=== PATIENT | female | born 1975 | race Caucasian/White ===

== ENCOUNTER 2018-03-25 21:06 | Emergency (ER) | payer MEDICARE, OTHER ==
[2018-03-25] MEDS ORDERED: SODIUM CHLORIDE 0.9% 1,000 ML with MVI, ADULT NO.4 WITH VIT K 10 ML, THIAMINE 100 MG, F... IV ONE ×4 (22:50)
--- NOTE | 2018-03-25 23:14 | ED ---
Alcohol HPI - General Chief Complaint: Alcohol Stated Complaint: alcohol detox Time Seen by Provider: 03/25/18 21:30 Source: patient Mode of arrival: ambulatory Limitations: no limitations - History of Present Illness Initial Comments: Patient is a 42-year-old female with a past medical history of alcohol abuse who presents the emergency department today for evaluation of alcohol intoxication and desire to sober up. She reports she has a long history of alcoholism. She reports that she was sober for approximately one year but 2 months ago began drinking again. He reports that she drinks daily. She drinks liquor. She reports that approximately 2 and half weeks ago she was evaluated in a hospital in [facility] and was prescribed Librium for detox. She reports that she was sober for about a week but for the past week has been drinking daily. She reports that she has moved to [place] to be with a new boyfriend. She states that this evening she had been drinking when she decided that she wanted to become sober again. Her boyfriend brought her to the emergency department and dropped her off prior to going to work. Patient states that she does not have her phone. Does not know where her new boyfriend's home is. Does not have an address. And has no way to leave the emergency department. She states that she came here to help get sober. She states that when she tried to use over 2 weeks ago she was given Librium which helped however wasn't given until she had an alcohol level of 0 and she reports that she had significant agitation upon sobering up. Denies any history of seizing with withdraw in the past. - Related Data Home Medications Medication Instructions Recorded Confirmed Armodafinil [Nuvigil] 250 mg PO DAILY 03/25/18 03/25/18 Gabapentin 800 mg PO TID 03/25/18 03/25/18 Omeprazole [PriLOSEC] 40 mg PO DAILY 03/25/18 03/25/18 Venlafaxine HCl [Effexor XR] 300 mg PO DAILY 03/25/18 03/25/18 buPROPion HCL [Wellbutrin XL] 300 mg PO DAILY 03/25/18 03/25/18 hydrOXYzine PAMOATE [Vistaril] 50 - 100 mg PO TID PRN 03/25/18 03/25/18 traZODone HCL 150 mg PO HS 03/25/18 03/25/18 Previous Rx's Medication Instructions Recorded chlordiazePOXIDE HCl [Librium] 50 mg PO QID #34 capsule 03/26/18 Allergies Allergy/AdvReac Type Severity Reaction Status Date / Time amoxicillin Allergy Rash/Hives Verified 03/25/18 21:14 azithromycin [From Zithromax] Allergy Nausea & Verified 03/25/18 21:14 Vomiting & Diarrhea Review of Systems ROS Statement: Those systems with pertinent positive or pertinent negative responses have been documented in the HPI. ROS Other: All systems not noted in ROS Statement are negative. Past Medical History Past Medical History: GERD/Reflux Additional Past Medical History / Comment(s): alcoholism History of Any Multi-Drug Resistant Organisms: MRSA MDRO Source:: face Past Surgical History: Orthopedic Surgery Past Psychological History: Depression Smoking Status: Former smoker Past Alcohol Use History: Abuse, Daily, Heavy Past Drug Use History: Cocaine General Exam - General Exam Comments Initial Comments: GENERAL: Patient appears intoxicated HENT: Normocephalic, Atraumatic. Neck is soft and supple. No significant lymphadenopathy is noted. Oropharynx is clear. Moist mucous membranes. Neck has full range of motion without eliciting any pain. EYES: The sclera were anicteric and conjunctiva were pink and moist. Extraocular movements were intact and pupils were equal round and reactive to light. Eyelids were unremarkable. PULMONARY: Unlabored respirations. Good breath sounds bilaterally. No audible rales rhonchi or wheezing was noted. CARDIOVASCULAR: Tachycardic regular ABDOMEN: Soft and nontender with normal bowel sounds. SKIN: Skin is clear with no lesions or rashes and otherwise unremarkable. NEUROLOGIC: Patient is alert and oriented x3. Cranial nerves II through XII are grossly intact. Motor and sensory are also intact. Symmetrical smile. Speech is somewhat slurred MUSCULOSKELETAL: Normal extremities with adequate strength and full range of motion. No lower extremity swelling or edema. No calf tenderness. LYMPHATICS: No significant lymphadenopathy is noted PSYCHIATRIC: Tearful, apologetic, asking for help Limitations: no limitations Limitations: no limitations Course Vital Signs 03/25/18 03/26/18 03/26/18 21:10 02:43 05:11 Temperature 98 F 98.3 F Pulse Rate 111 H 109 H 96 Respiratory 18 18 20 Rate Blood Pressure 134/85 146/92 129/95 O2 Sat by Pulse 98 100 97 Oximetry 03/26/18 03/26/18 03/26/18 06:01 06:20 07:01 Temperature 97.9 F Pulse Rate 88 94 80 Respiratory 18 16 18 Rate Blood Pressure 133/80 O2 Sat by Pulse 96 97 98 Oximetry Medical Decision Making - Medical Decision Making The patient was seen and evaluated, history was obtained from the patient.-year- old alcoholic female who reports intermittent sobriety over the past year. Most recently was sober approximately 2 weeks ago but has been drinking a fifth of liquor daily for at least the past week to 10 days. Was dropped off at the hospital by who she reports is her boyfriend. She is clearly intoxicated and has no way to contact anybody, does not know where she lives. At this time we will pursue an evaluation. Labs are consistent with alcoholic hepatitis as well as some macrocytic anemia which is likely secondary to alcohol abuse Patient resting comfortably. A banana bag of IV fluids and a regular diet were ordered. We will monitor this patient throughout the evening. We'll reevaluate when the patient is clinically sober. Patient rested comfortably throughout the night during her emergency department stay. Patient was somewhat anxious in the morning. By mouth Ativan was ordered. Her first dose of by mouth Librium was also given. Patient's ride arrived at 6:30 in the morning as comfortable taking patient home at this time. - Lab Data Result diagrams: 03/25/18 23:00 03/25/18 23:00 Lab Results 03/25/18 03/25/18 Range/Units 23:00 23:00 WBC 7.8 (3.8-10.6) k/uL RBC 3.81 (3.80-5.40) m/uL Hgb 13.1 (11.4-16.0) gm/dL Hct 39.3 (34.0-46.0) % MCV 103.2 H (80.0-100.0) fL MCH 34.4 (25.0-35.0) pg MCHC 33.3 (31.0-37.0) g/dL RDW 14.9 (11.5-15.5) % Plt Count 274 (150-450) k/uL Neutrophils % 69 % Lymphocytes % 23 % Monocytes % 4 % Eosinophils % 1 % Basophils % 1 % Neutrophils # 5.4 (1.3-7.7) k/uL Lymphocytes # 1.8 (1.0-4.8) k/uL Monocytes # 0.3 (0-1.0) k/uL Eosinophils # 0.1 (0-0.7) k/uL Basophils # 0.1 (0-0.2) k/uL Macrocytosis Slight Sodium 145 (137-145) mmol/L Potassium 4.0 (3.5-5.1) mmol/L Chloride 102 (98-107) mmol/L Carbon Dioxide 27 (22-30) mmol/L Anion Gap 16 mmol/L BUN 8 (7-17) mg/dL Creatinine 0.91 (0.52-1.04) mg/dL Est GFR (CKD-EPI)AfAm 90 (>60 ml/min/1.73 sqM) Est GFR (CKD-EPI)NonAf 78 (>60 ml/min/1.73 sqM) Glucose 84 (74-99) mg/dL Calcium 9.5 (8.4-10.2) mg/dL Total Bilirubin 0.6 (0.2-1.3) mg/dL AST 331 H (14-36) U/L ALT 123 H (9-52) U/L Alkaline Phosphatase 122 (38-126) U/L Total Protein 8.2 (6.3-8.2) g/dL Albumin 4.9 (3.5-5.0) g/dL Serum Alcohol 253 H* mg/dL Disposition Clinical Impression: Alcoholic intoxication Disposition: HOME SELF-CARE Instructions: Alcohol Withdrawal (ED) Prescriptions: chlordiazePOXIDE HCl [Librium] 50 mg PO QID #34 capsule Is patient prescribed a controlled substance at d/c from ED?: Yes When asked, does pt state using other controlled substances?: No If prescribed controlled substance>3 days was MAPS reviewed?: No Referrals: None,Stated [Primary Care Provider] - 1-2 days Time of Disposition: 06:33
[2018-03-25 23:43] LABS: Basophils # (A) 0.1 k/uL (0-0.2); Basophils % (A) 1 %; Eosinophils # (A) 0.1 k/uL (0-0.7); Eosinophils % (A) 1 %; HCT 39.3 % (34.0-46.0); HGB 13.1 gm/dL (11.4-16.0); Lymphocytes # (A) 1.8 k/uL (1.0-4.8); Lymphocytes % (A) 23 %; MCH 34.4 pg (25.0-35.0); MCHC 33.3 g/dL (31.0-37.0); MCV 103.2 fL (80.0-100.0); Macrocytosis Slight; Mean Platelet Volume 7.1; Monocytes # (A) 0.3 k/uL (0-1.0); Monocytes % (A) 4 %; Neutrophils # (A) 5.4 k/uL (1.3-7.7); Neutrophils % (A) 69 %; Platelet Count 274 k/uL (150-450); RBC 3.81 m/uL (3.80-5.40); RDW 14.9 % (11.5-15.5); WBC 7.8 k/uL (3.8-10.6)
[2018-03-25 23:52] LABS: Albumin 4.9 g/dL (3.5-5.0); Calcium 9.5 mg/dL (8.4-10.2); Total Bilirubin 0.6 mg/dL (0.2-1.3); Total Protein 8.2 g/dL (6.3-8.2)
[2018-03-26] MEDS ORDERED: chlordiazePOXIDE 25 MG CAP PO STA (04:40)
[2018-03-26] MEDS ORDERED: LORazepam 1 MG TAB PO STA (05:44)
[2018-03-26 07:03] VITALS: BP 133/80; PULSE 80; RESP 18; TEMP 97.9
== END 2018-03-26 07:03 | disposition home or self-care (01) ==
LOC: EC 21:06
DX: F10.120 Alcohol abuse with intoxication, uncomplicated (principal); F32.9 Major depressive disorder, single episode, unspecified; K21.9 Gastro-esophageal reflux disease without esophagitis; Z86.14 Personal history of Methicillin resistant Staphylococcus aureus infection; Z87.891 Personal history of nicotine dependence; Y90.8 Blood alcohol level of 240 mg/100 ml or more; Z79.899 Other long term (current) drug therapy; Z88.0 Allergy status to penicillin; Z88.1 Allergy status to other antibiotic agents
CPT/HCPCS: 36415; 80053; 85025; 99284; 96365; 96366 ×7; G0480; J3411; 80320; 82075

== ENCOUNTER 2018-03-30 17:19 | Emergency (ER) | payer MEDICARE, OTHER ==
[2018-03-30 17:44] VITALS: RESP 18
[2018-03-30 18:09] LABS: Appearance,Urine Cloudy (Clear); Bacteria,Urine Occasional /hpf; Bilirubin,Urine Negative (Negative); Blood,Urine Trace (Negative); Color,Urine Yellow; Glucose,Urine (UA) Negative (Negative); Ketones,Urine Negative (Negative); Leukocyte Esterase,Urine Large (Negative); Mucus,Urine Occasional /hpf; Nitrite,Urine Positive (Negative); Protein,Urine Trace (Negative); RBC,Urine 9 /hpf (0-5); Specific Gravity,Urine 1.024 (1.001-1.035); Squamous Epithelial Cell,Urine 22 /hpf (0-4); Urobilinogen,Urine <2.0 mg/dL (<2.0); WBC,Urine >182 /hpf (0-5)
--- NOTE | 2018-03-30 19:03 | ED ---
Female Urogenital HPI - General Chief complaint: Urogenital Stated complaint: female /med refill Time Seen by Provider: 03/30/18 18:32 Source: patient Mode of arrival: ambulatory Limitations: no limitations - History of Present Illness Initial comments: 42-year-old female patient presents to the emergency department today with complaints of dysuria and urinary urgency. Patient states that she has had symptoms for approximately one week and they've seemed to get worse. Patient states she did have an incontinent episode while sleeping the other night. Patient denies any fevers or chills. Patient states that she's also had thick vaginal discharge with a "fishy" odor. Patient states that she is currently withdrawing from alcohol and lasted was approximately 5 days ago. States she is taking Librium. Patient has had difficulties similar to this when withdrawing in the past. She denies any nausea, vomiting, abdominal pain, back pain, or flank pain. She denies any hematuria. States that she has had urinary tract infections in the past and this feels quite similar. She denies any concerns for sexually transmitted infections. Patient denies any recent rash, shortness breath, chest pain, diarrhea, constipation, back pain, numbness , tingling, dizziness, weakness, headache, visual changes, or any other complaints. - Related Data Home Medications Medication Instructions Recorded Confirmed Armodafinil [Nuvigil] 250 mg PO DAILY 03/25/18 03/30/18 Gabapentin 800 mg PO TID 03/25/18 03/30/18 Omeprazole [PriLOSEC] 40 mg PO DAILY 03/25/18 03/30/18 Venlafaxine HCl [Effexor XR] 300 mg PO DAILY 03/25/18 03/30/18 traZODone HCL 150 mg PO HS 03/25/18 03/30/18 Levonorgestrel-Ethin Estradiol 1 tab PO DAILY 03/30/18 03/30/18 [Levora-28 Tablet] Naproxen 500 mg PO BID 03/30/18 03/30/18 buPROPion XL [Wellbutrin Xl] 450 mg PO DAILY 03/30/18 03/30/18 Previous Rx's Medication Instructions Recorded Gabapentin [Neurontin] 800 mg PO TID #21 tablet 03/30/18 Sulfamethoxazole/Trimethoprim 1 each PO BID #20 tablet 03/30/18 [Bactrim DS 800-160 mg] buPROPion XL [Wellbutrin XL] 300 mg PO DAILY #14 tab.er.24h 03/30/18 Allergies Allergy/AdvReac Type Severity Reaction Status Date / Time amoxicillin Allergy Rash/Hives Verified 03/30/18 18:38 azithromycin [From Zithromax] Allergy Nausea & Verified 03/30/18 18:38 Vomiting & Diarrhea Review of Systems ROS Statement: Those systems with pertinent positive or pertinent negative responses have been documented in the HPI. ROS Other: All systems not noted in ROS Statement are negative. Past Medical History Past Medical History: GERD/Reflux Additional Past Medical History / Comment(s): alcoholism History of Any Multi-Drug Resistant Organisms: MRSA MDRO Source:: face Past Surgical History: Orthopedic Surgery Past Psychological History: Depression Smoking Status: Former smoker Past Alcohol Use History: None Reported, Abuse, Daily, Heavy Past Drug Use History: Cocaine General Exam Limitations: no limitations General appearance: alert, in no apparent distress, other (This is a well- developed, well-nourished adult female patient in no acute distress. Vital signs upon presentation are temperature 97.9F, pulse 100, respirations 18, blood pressure 124/83, pulse ox 100% on room air.) Eye exam: Present: normal appearance, PERRL, EOMI. Absent: scleral icterus, conjunctival injection, periorbital swelling ENT exam: Present: normal exam, normal oropharynx, mucous membranes moist Respiratory exam: Present: normal lung sounds bilaterally. Absent: respiratory distress, wheezes, rales, rhonchi, stridor Cardiovascular Exam: Present: regular rate, normal rhythm, normal heart sounds. Absent: systolic murmur, diastolic murmur, rubs, gallop, clicks GI/Abdominal exam: Present: soft, tenderness (Mild suprapubic tenderness), normal bowel sounds. Absent: distended, guarding, rebound, rigid External exam: Present: normal external exam Speculum exam: Present: normal speculum exam By manual exam: Present: normal by manual exam Neurological exam: Present: alert, oriented X3, CN II-XII intact, other ( Generalized tremor) Psychiatric exam: Present: normal affect, normal mood Skin exam: Present: warm, dry, intact, normal color. Absent: rash Course Vital Signs 03/30/18 03/30/18 17:41 19:52 Temperature 97.9 F 97.7 F Pulse Rate 100 96 Respiratory 18 18 Rate Blood Pressure 124/83 138/80 O2 Sat by Pulse 100 100 Oximetry Medical Decision Making - Medical Decision Making 42-year-old female patient presents to emergency department today for evaluation of dysuria and urinary urgency. Patient is also concerned that she may have a vaginal bacterial infection because she has been having intermittent thick discharge and fishy odor. Patient is also requesting refills on her psychiatric medications as she recently moved to the area and fired her old psychiatrist. Physical examination did reveal some mild suprapubic tenderness. Patient had no CVA tenderness. Vital signs are stable no fever. Urinalysis was obtained and showed a cloudy appearance with trace protein, trace blood, positive nitrite, large leukocyte esterase, 9 red blood cells, greater than 182 white blood cells, 22 squamous epithelial cells, occasional bacteria, and occasional mucous. Pelvic examination was unremarkable. Cultures were obtained and sent. Patient will be treated for urinary tract infection. We will refill her gabapentin and Wellbutrin prescriptions for the next week, I did inform her we were unable to fill the Nuvigil as it is a controlled substance. She was given referral for primary care follow-up as well as psychiatry follow-up. Return parameters were discussed in detail. She verbalizes understanding and agreed with this plan. - Lab Data Lab Results 03/30/18 Range/Units 17:47 Urine Color Yellow Urine Appearance Cloudy H (Clear) Urine pH 6.0 (5.0-8.0) Ur Specific [place] 1.024 (1.001-1.035) Urine Protein Trace H (Negative) Urine Glucose (UA) Negative (Negative) Urine Ketones Negative (Negative) Urine Blood Trace H (Negative) Urine Nitrite Positive H (Negative) Urine Bilirubin Negative (Negative) Urine Urobilinogen <2.0 (<2.0) mg/dL Ur Leukocyte Esterase Large H (Negative) Urine RBC 9 H (0-5) /hpf Urine WBC >182 H (0-5) /hpf Ur Squamous Epith Cells 22 H (0-4) /hpf Urine Bacteria Occasional H (None) /hpf Urine Mucus Occasional H (None) /hpf Disposition Clinical Impression: Urinary tract infection, Medication refill Disposition: HOME SELF-CARE Condition: Good Instructions: Urinary Tract Infection in Women (ED), Medicine Refill (ED) Additional Instructions: Increase fluids. Continue taking all medications as prescribed. Complete antibiotic prescription in full. Follow-up with the primary care physician for recheck in 1-2 days. Establish with a psychiatrist/primary care physician for refills of your medications. Return here immediately for any new, worsening, or concerning symptoms. Prescriptions: buPROPion XL [Wellbutrin XL] 300 mg PO DAILY #14 tab.er.24h Gabapentin [Neurontin] 800 mg PO TID #21 tablet Sulfamethoxazole/Trimethoprim [Bactrim DS 800-160 mg] 1 each PO BID #20 tablet Is patient prescribed a controlled substance at d/c from ED?: No Referrals: Henrietta Salomon MD [STAFF PHYSICIAN] - 1-2 days Rigoberto Paniagua DO [Doctor of Osteopathic Medicine] - 1-2 days Time of Disposition: 19:40
[2018-03-30 19:54] VITALS: BP 138/80; PULSE 96; TEMP 97.7
[2018-03-31 15:06] LABS: C. trachomatis,PCR Negative (Neg,Equiv); Chlamydia trachomatis Source Vagina; N. gonorrhoeae,PCR Negative (Neg,Equiv); Neisseria Source Vagina
== END 2018-03-30 19:53 | disposition home or self-care (01) ==
LOC: EC 17:19
DX: N39.0 Urinary tract infection, site not specified (principal); Z76.0 Encounter for issue of repeat prescription; K21.9 Gastro-esophageal reflux disease without esophagitis; F32.9 Major depressive disorder, single episode, unspecified; Z86.14 Personal history of Methicillin resistant Staphylococcus aureus infection; Z87.891 Personal history of nicotine dependence; Z79.1 Long term (current) use of non-steroidal anti-inflammatories (NSAID); Z79.3 Long term (current) use of hormonal contraceptives; Z79.899 Other long term (current) drug therapy; Z88.0 Allergy status to penicillin; Z88.1 Allergy status to other antibiotic agents
CPT/HCPCS: 81001; 87070; 87086; 87205; 87491; 87591; 87808; 99283

== ENCOUNTER 2018-04-05 23:30 | Emergency (ER) | payer MEDICARE, OTHER ==
[2018-04-05 23:35] VITALS: BP 135/86; PULSE 97; RESP 16; TEMP 98.3
[2018-04-05] MEDS ORDERED: VENLAFAXINE HCL ER 150 MG CAP PO STA (23:44)
--- NOTE | 2018-04-05 23:54 | ED ---
General Adult HPI - General Source: patient, RN notes reviewed Mode of arrival: ambulatory Limitations: no limitations <Tania Limon - Last Filed: 04/05/18 23:44> <Mary Maynard - Last Filed: 04/06/18 00:33> - General Chief complaint: Nausea/Vomiting/Diarrhea Stated complaint: migraine Time Seen by Provider: 04/05/18 23:36 - History of Present Illness Initial comments: This is a 42-year-old female who presents to the emergency department with request for medication refill. Patient states that she has been on Effexor for 15 years. She states that she takes 300 mg of Effexor daily. She states that she ran out of her medications 3 days ago. Since that time, patient states she has developed nausea, vomiting and migraine headache. Patient requests to have a prescription for Effexor. She states that she does have a follow-up appointment with her primary care provider tomorrow. Patient states that she does not want any medications for her migraine or nausea, just wants Effexor. Denies any fevers or chills, chest pain or shortness of breath, abdominal pain, dizziness or vision changes. (Tania Limon) - Related Data Home Medications Medication Instructions Recorded Confirmed Armodafinil [Nuvigil] 250 mg PO DAILY 03/25/18 03/30/18 Gabapentin 800 mg PO TID 03/25/18 03/30/18 Omeprazole [PriLOSEC] 40 mg PO DAILY 03/25/18 03/30/18 traZODone HCL 150 mg PO HS 03/25/18 03/30/18 Levonorgestrel-Ethin Estradiol 1 tab PO DAILY 03/30/18 03/30/18 [Levora-28 Tablet] Naproxen 500 mg PO BID 03/30/18 03/30/18 buPROPion XL [Wellbutrin Xl] 450 mg PO DAILY 03/30/18 03/30/18 Previous Rx's Medication Instructions Recorded Gabapentin [Neurontin] 800 mg PO TID #21 tablet 03/30/18 Sulfamethoxazole/Trimethoprim 1 each PO BID #20 tablet 03/30/18 [Bactrim DS 800-160 mg] buPROPion XL [Wellbutrin XL] 300 mg PO DAILY #14 tab.er.24h 03/30/18 Venlafaxine HCl [Effexor XR] 300 mg PO DAILY #14 cap.er.24h 04/05/18 Allergies Allergy/AdvReac Type Severity Reaction Status Date / Time amoxicillin Allergy Rash/Hives Verified 04/05/18 23:35 azithromycin [From Zithromax] Allergy Nausea & Verified 04/05/18 23:35 Vomiting & Diarrhea Review of Systems ROS Other: All systems not noted in ROS Statement are negative. <Tania Limon - Last Filed: 04/05/18 23:44> ROS Other: All systems not noted in ROS Statement are negative. <Mary Maynard - Last Filed: 04/06/18 00:33> ROS Statement: Those systems with pertinent positive or pertinent negative responses have been documented in the HPI. Past Medical History Past Medical History: GERD/Reflux Additional Past Medical History / Comment(s): alcoholism. History of Any Multi-Drug Resistant Organisms: MRSA MDRO Source:: face Past Surgical History: Orthopedic Surgery Past Psychological History: Depression Smoking Status: Former smoker Past Alcohol Use History: None Reported, Abuse, Daily, Heavy Past Drug Use History: Cocaine <Tania Limon M - Last Filed: 04/05/18 23:44> General Exam Limitations: no limitations <Tania Limon M - Last Filed: 04/05/18 23:44> <Mary Maynard - Last Filed: 04/06/18 00:33> - General Exam Comments Initial Comments: General: Awake and alert, well-developed; in no apparent distress. Patient lying on ED stretcher with an ice pack on her forehead. Partner is at bedside. HEENT: Head atraumatic, normocephalic. Pupils are equal, round and reactive to light. Extraocular movements intact. Oropharynx moist. Neck: Supple. Normal ROM. Cardiovascular: Regular rate and rhythm. No murmurs, rubs or gallops. Chest symmetrical. Respiratory: Lungs clear to auscultation bilaterally. No wheezes, rales or rhonchi. Normal respiratory effort with no use of accessory muscles. Musculoskeletal: Normal ROM, no tenderness bilateral upper and lower extremities. Ambulating normally. Skin: [place]ice, warm and dry without rashes or lesions. Neurological: Alert and oriented x3. CN II-XII grossly intact. Speech is fluent and answers are appropriate. No focal neuro deficits. Psychiatric: Normal mood and affect. No overt signs of depression or anxiety noted. (Tania Limon) Vital Signs 04/05/18 23:32 Temperature 98.3 F Pulse Rate 97 Respiratory 16 Rate Blood Pressure 135/86 O2 Sat by Pulse 94 L Oximetry Medical Decision Making <Tania Limon - Last Filed: 04/05/18 23:44> <Mary Maynard - Last Filed: 04/06/18 00:33> - Medical Decision Making This is a 42-year-old female who presents to emergency department with request for medication refill. Patient states she has been out of her Effexor for the past 3 days. She reports vomiting and migraine. I asked patient if she wanted to be treated for the migraine and vomiting and she declines. She states she just wants her Effexor refilled. She has an appointment tomorrow with her primary care provider. Patient given 300 mg of Effexor here in the emergency department. She will be provided with a few days' worth until she is able to get a refill. Vitals are stable and patient is in no acute distress. She will be discharged home at this time. She is in agreement and voices understanding. All questions were answered. (Tania Limon) I was available for consultation in the emergency department. The history and physical exam were done by the midlevel provider. I was consulted for this patient's care. I reviewed the case with the midlevel provider and based on their presentation of the patient, I agree with the assessment, medical decision making and plan of care as documented. (Mary Maynard) Disposition Is patient prescribed a controlled substance at d/c from ED?: No Time of Disposition: 23:54 <Tania Limon - Last Filed: 04/05/18 23:44> <Mary Maynard - Last Filed: 04/06/18 00:33> Clinical Impression: Medication refill Disposition: HOME SELF-CARE Condition: Good Instructions: Venlafaxine (By mouth) Additional Instructions: As discussed, please follow-up with your primary care provider for refill. Please take medications as prescribed. Please follow up with primary care provider within 1-2 days. Return to emergency department if symptoms should worsen or any concerns arise. Prescriptions: Venlafaxine HCl [Effexor XR] 300 mg PO DAILY #14 cap.er.24h Referrals: None,Stated [Primary Care Provider] - 1-2 days
== END 2018-04-06 00:16 | disposition home or self-care (01) ==
LOC: EC 23:30
DX: Z76.0 Encounter for issue of repeat prescription (principal); G43.909 Migraine, unspecified, not intractable, without status migrainosus; F32.9 Major depressive disorder, single episode, unspecified; K21.9 Gastro-esophageal reflux disease without esophagitis; Z86.14 Personal history of Methicillin resistant Staphylococcus aureus infection; Z87.891 Personal history of nicotine dependence; Z79.3 Long term (current) use of hormonal contraceptives; Z79.1 Long term (current) use of non-steroidal anti-inflammatories (NSAID); Z79.899 Other long term (current) drug therapy; Z88.0 Allergy status to penicillin; Z88.1 Allergy status to other antibiotic agents; Z53.29 Procedure and treatment not carried out because of patient's decision for other reasons
CPT/HCPCS: 99283

== ENCOUNTER 2018-04-07 15:15 | Emergency (ER) | payer MEDICARE, OTHER ==
[2018-04-07] MEDS ORDERED: NITROGLYCERIN OINT 1 INCH/GM PACKET TOPICAL STA (15:19)
[2018-04-07] MEDS ORDERED: ASPIRIN 81 MG PO STA (15:19)
[2018-04-07 15:25] VITALS: BP 145/108; PULSE 96; RESP 20; TEMP 97.8
[2018-04-07] MEDS ORDERED: FAMOTIDINE 20 MG/2 ML VIAL IV STA (15:31)
[2018-04-07] MEDS ORDERED: METOCLOPRAMIDE 5 MG/ML 2 ML VIAL IM STA (15:31)
[2018-04-07] MEDS ORDERED: SODIUM CHLORIDE 0.9% 500 ML IV STA (15:32)
--- NOTE | 2018-04-07 15:38 | ED ---
General Adult HPI - General Chief complaint: Alcohol Stated complaint: alcohol Time Seen by Provider: 04/07/18 15:18 Source: patient, EMS, RN notes reviewed Mode of arrival: EMS Limitations: no limitations - History of Present Illness Initial comments: Patient is a pleasant 42-year-old female presenting to the emergency Department with alcohol intoxication. Patient states she is unclear why she is here. Patient admits to drinking about a fifth of alcohol daily. Patient does complain of some discomfort and points to the epigastrium. Patient states she was in the hospital for detox several weeks ago. Patient states she was also recently here for urinary tract infection. Patient denies any history of pancreatitis - Related Data Home Medications Medication Instructions Recorded Confirmed Armodafinil [Nuvigil] 250 mg PO BID 03/25/18 04/07/18 Omeprazole [PriLOSEC] 40 mg PO BID 03/25/18 04/07/18 traZODone HCL 150 mg PO HS 03/25/18 04/07/18 Levonorgestrel-Ethin Estradiol 1 tab PO DAILY 03/30/18 04/07/18 [Levora-28 Tablet] Naproxen 500 mg PO BID PRN 03/30/18 04/07/18 Sulfamethoxazole/Trimethoprim 1 tab PO BID 04/07/18 04/07/18 [Bactrim DS 800-160 mg] Previous Rx's Medication Instructions Recorded buPROPion XL [Wellbutrin XL] 300 mg PO DAILY #14 tab.er.24h 03/30/18 Venlafaxine HCl [Effexor XR] 300 mg PO DAILY #14 cap.er.24h 04/05/18 Allergies Allergy/AdvReac Type Severity Reaction Status Date / Time amoxicillin Allergy Rash/Hives Verified 04/07/18 15:45 azithromycin [From Zithromax] Allergy Nausea & Verified 04/07/18 15:45 Vomiting & Diarrhea Review of Systems ROS Statement: Those systems with pertinent positive or pertinent negative responses have been documented in the HPI. ROS Other: All systems not noted in ROS Statement are negative. Constitutional: Denies: fever Eyes: Denies: eye pain ENT: Denies: ear pain Respiratory: Denies: cough, dyspnea Cardiovascular: Reports: chest pain (Points to the epigastric region) Endocrine: Denies: fatigue Gastrointestinal: Reports: abdominal pain, nausea, vomiting Genitourinary: Denies: dysuria Musculoskeletal: Denies: back pain Skin: Denies: rash Neurological: Denies: headache, weakness Psychiatric: Reports: anxiety Past Medical History Past Medical History: GERD/Reflux Additional Past Medical History / Comment(s): alcoholism. History of Any Multi-Drug Resistant Organisms: MRSA MDRO Source:: face Past Surgical History: Orthopedic Surgery Past Psychological History: Depression Smoking Status: Former smoker Past Alcohol Use History: None Reported, Abuse, Daily, Heavy Past Drug Use History: Cocaine General Exam Limitations: no limitations General appearance: alert, in no apparent distress, appears intoxicated Head exam: Present: atraumatic Eye exam: Present: normal appearance, PERRL ENT exam: Present: normal oropharynx Neck exam: Present: normal inspection Respiratory exam: Present: normal lung sounds bilaterally. Absent: chest wall tenderness Cardiovascular Exam: Present: regular rate, normal rhythm Expanded Peripheral pulses: 2+: Radial (R), Radial (L), Dorsalis Pedis (R), Dorsalis Pedis (L) GI/Abdominal exam: Present: soft, tenderness (Mild to moderate epigastric tenderness), normal bowel sounds. Absent: distended, guarding, rebound, rigid, pulsatile mass Extremities exam: Present: normal inspection. Absent: pedal edema, calf tenderness Neurological exam: Present: alert Psychiatric exam: Present: normal affect, normal mood Skin exam: Present: normal color Course Vital Signs 04/07/18 15:21 Temperature 97.8 F Pulse Rate 96 Respiratory 20 Rate Blood Pressure 145/108 O2 Sat by Pulse 100 Oximetry Medical Decision Making - Medical Decision Making Patient reportedly refused care. No obvious life-threatening etiology at this point. Secondary to this we cannot impose unwanted medical care on the patient. Patient did not wait for reevaluation. Reportedly left AGAINST MEDICAL ADVICE. Disposition Clinical Impression: Alcoholic intoxication Disposition: Left Against Medical Advice Is patient prescribed a controlled substance at d/c from ED?: No Referrals: None,Stated [Primary Care Provider] - 1-2 days
[2018-04-07] MEDS ORDERED: SODIUM CHLORIDE 0.9% 1,000 ML with MVI, ADULT NO.4 WITH VIT K 10 ML, THIAMINE 100 MG, F... IV ONE ×4 (16:00)
== END 2018-04-07 16:28 | disposition left against medical advice (07) ==
LOC: EC 15:15
DX: F10.129 Alcohol abuse with intoxication, unspecified (principal); K21.9 Gastro-esophageal reflux disease without esophagitis; F32.9 Major depressive disorder, single episode, unspecified; Z87.891 Personal history of nicotine dependence; Z88.0 Allergy status to penicillin; Z88.1 Allergy status to other antibiotic agents; Z79.3 Long term (current) use of hormonal contraceptives; Z79.899 Other long term (current) drug therapy; Z86.14 Personal history of Methicillin resistant Staphylococcus aureus infection; Z87.440 Personal history of urinary (tract) infections
CPT/HCPCS: 99284

== ENCOUNTER 2018-04-09 18:24 | Emergency (ER) | payer MEDICARE, OTHER ==
--- NOTE | 2018-04-09 18:30 | ED ---
Alcohol HPI - History of Present Illness MD Complaint: alcohol intoxication, alcohol dependence Last Drink: just [employer] -: minute(s) Previous Visits for Alcohol Intoxication?: Yes Recent Trauma: No Associated Symptoms: depression, suicidality Treatments Prior to Arrival: none Chronic Alcohol Use: Yes <Chaitanya Villarreal - Last Filed: 04/09/18 19:14> <Mary Maynard - Last Filed: 04/10/18 06:18> - General Stated Complaint: ETOH Time Seen by Provider: 04/09/18 18:28 - History of Present Illness Initial Comments: This is a 42-year-old female the ER for evaluation severe alcohol intoxication. She states she is definitely emotionally distraught unable to give history secondary to level of emotional distress, patient is persistently crying ( Chaitanya Villarreal) - Related Data Home Medications Medication Instructions Recorded Confirmed Armodafinil [Nuvigil] 250 mg PO BID 03/25/18 04/09/18 Omeprazole [PriLOSEC] 40 mg PO BID 03/25/18 04/09/18 traZODone HCL 150 mg PO HS 03/25/18 04/09/18 Levonorgestrel-Ethin Estradiol 1 tab PO DAILY 03/30/18 04/09/18 [Levora-28 Tablet] Naproxen 500 mg PO BID PRN 03/30/18 04/09/18 Sulfamethoxazole/Trimethoprim 1 tab PO BID 04/07/18 04/09/18 [Bactrim DS 800-160 mg] Previous Rx's Medication Instructions Recorded buPROPion XL [Wellbutrin XL] 300 mg PO DAILY #14 tab.er.24h 03/30/18 Venlafaxine HCl [Effexor XR] 300 mg PO DAILY #14 cap.er.24h 04/05/18 Allergies Allergy/AdvReac Type Severity Reaction Status Date / Time amoxicillin Allergy Rash/Hives Verified 04/09/18 20:28 azithromycin [From Zithromax] Allergy Nausea & Verified 04/09/18 20:28 Vomiting & Diarrhea Review of Systems ROS Other: All systems not noted in ROS Statement are negative. <Chaitanya Villarreal - Last Filed: 04/09/18 19:14> ROS Other: All systems not noted in ROS Statement are negative. <Mary Maynard - Last Filed: 04/10/18 06:18> ROS Statement: Those systems with pertinent positive or pertinent negative responses have been documented in the HPI. Past Medical History Past Medical History: GERD/Reflux Additional Past Medical History / Comment(s): alcoholism. History of Any Multi-Drug Resistant Organisms: MRSA MDRO Source:: face Past Surgical History: Orthopedic Surgery Past Psychological History: Depression Smoking Status: Former smoker Past Alcohol Use History: None Reported, Abuse, Daily, Heavy Past Drug Use History: Cocaine <Chaitanya Villarreal - Last Filed: 04/09/18 19:14> General Exam General appearance: alert, in no apparent distress, appears intoxicated Head exam: Present: atraumatic, normocephalic, normal inspection Eye exam: Present: normal appearance, PERRL, EOMI. Absent: scleral icterus, conjunctival injection, periorbital swelling ENT exam: Present: normal exam, mucous membranes moist Neck exam: Present: normal inspection. Absent: tenderness, meningismus, lymphadenopathy Respiratory exam: Present: normal lung sounds bilaterally. Absent: respiratory distress, wheezes, rales, rhonchi, stridor Cardiovascular Exam: Present: regular rate, normal rhythm, normal heart sounds. Absent: systolic murmur, diastolic murmur, rubs, gallop, clicks GI/Abdominal exam: Present: soft, normal bowel sounds. Absent: distended, tenderness, guarding, rebound, rigid Extremities exam: Present: normal inspection, full ROM, normal capillary refill. Absent: tenderness, pedal edema, joint swelling, calf tenderness Back exam: Present: normal inspection Neurological exam: Present: alert, oriented X3, CN II-XII intact Psychiatric exam: Present: normal affect, normal mood Skin exam: Present: warm, dry, intact, normal color. Absent: rash <Chaitanya Villarreal - Last Filed: 04/09/18 19:14> Vital Signs 04/09/18 04/10/18 18:38 05:52 Temperature 97.9 F 98.1 F Pulse Rate 99 108 H Respiratory 18 20 Rate Blood Pressure 146/95 156/96 O2 Sat by Pulse 98 98 Oximetry Disposition <Chaitanya Villarreal - Last Filed: 04/09/18 19:14> Is patient prescribed a controlled substance at d/c from ED?: No <Mary Maynard P - Last Filed: 04/10/18 06:18> Clinical Impression: Alcoholic intoxication Disposition: HOME SELF-CARE Condition: Stable Instructions: Alcohol Intoxication (ED) Referrals: None,Stated [Primary Care Provider] - 1-2 days
[2018-04-10] MEDS ORDERED: ONDANSETRON 4 MG ODT STARTER PACK 2 TAB BTL PO STA (05:09)
[2018-04-10 05:54] VITALS: BP 156/96; PULSE 108; TEMP 98.1
[2018-04-10 06:30] VITALS: RESP 18
== END 2018-04-10 06:35 | disposition home or self-care (01) ==
LOC: EC 18:24
DX: F10.129 Alcohol abuse with intoxication, unspecified (principal); Y90.9 Presence of alcohol in blood, level not specified; K21.9 Gastro-esophageal reflux disease without esophagitis; F32.9 Major depressive disorder, single episode, unspecified; Z79.899 Other long term (current) drug therapy; Z88.0 Allergy status to penicillin; Z88.1 Allergy status to other antibiotic agents
CPT/HCPCS: 99284; S0119